=== PATIENT | female | born 2000 | race Caucasian/White ===

== ENCOUNTER 2022-03-04 11:37 | Emergency (ER) | payer OTHER ==
[~2022-03-04] VITALS: Ht 167 cm; Wt 67.0 kg
--- NOTE | 2022-03-04 12:19 | ED Abdominal Pain ---
General Chief Complaint: Abdominal/GI Problems Stated Complaint: DEHYRADTION,CRAMPING Source of Information: Patient Exam Limitations: No Limitations History of Present Illness Date Seen by Provider: March 04, 2022 Time Seen by Provider: 12:10 Initial Comments Patient is a 21-year-old female who presents to the emergency room with about 36 hours of nausea, vomiting and diarrhea. Patient states her symptoms started last Wednesday evening. Both she and her boyfriend ate similar foods she had daughter and he had a different drink. She states she woke up early the following morning with several bouts of diarrhea that she believes were nonblack nonbloody. That quickly transitioned into nausea and vomiting. She states she tried to eat a little rice today and that was able to stay down although she still little bit nauseous. She complains of subjective fever. No URI symptoms. No burning with urination. No vomiting of blood. She has had no prior abdominal surgeries. She is taken nothing for her nausea and vomiting. The diarrhea has stopped. Patient complains of diffuse muscle cramping and feeling lightheaded/dizzy when she stands up. Last menstrual cycle was in the last week. She is currently on control pills. All other review of systems reviewed and negative except as stated. Timing/Duration: 2-3 Days Severity/Quality: Moderate, Cramping Location: Generalized Abdomen Radiation: No Radiation Activities at Onset: None Associated Symptoms: Nausea/Vomiting Allergies and Home Medications Allergies Coded Allergies: amoxicillin (Verified Allergy, Unknown, 03/04/22) azithromycin (Verified Allergy, Unknown, 03/04/22) clavulanic acid (Verified Allergy, Unknown, 03/04/22) Patient Home Medication List Home Medication List Reviewed: Yes Review of Systems Review of Systems Constitutional: see HPI EENTM: No Symptoms Reported Respiratory: No Symptoms Reported Cardiovascular: No Symptoms Reported Gastrointestinal: Abdominal Pain, Diarrhea, Nausea, Vomiting Genitourinary: No Symptoms Reported Musculoskeletal: muscle pain (muscle cramps) Skin: no symptoms reported Psychiatric/Neurological: Headache (mild) All Other Systems Reviewed Negative Unless Noted: Yes Physical Exam Vital Signs Vital Signs - First Documented 03/04/22 12:03 Temp 36.3 Pulse 80 Resp 18 B/P (MAP) 133/100 (111) Pulse Ox 96 O2 Delivery Room Air Capillary Refill : Height/Weight/BMI Height: '" Weight: lbs. oz. kg; BMI Method: General Appearance: WD/WN, no apparent distress HEENT: PERRL/EOMI Neck: full range of motion Respiratory: lungs clear, normal breath sounds, no respiratory distress, no accessory muscle use Cardiovascular: regular rate, rhythm Gastrointestinal: normal bowel sounds, soft, tenderness (diffuse mild tenderness; no rebound or involuntary guarding; neg Mcburney's point) Extremities: normal range of motion, non-tender, normal inspection, no pedal edema, normal capillary refill Neurologic/Psychiatric: no motor/sensory deficits, alert, normal mood/affect, oriented x 3 Skin: normal color, warm/dry Progress/Results/Core Measures Results/Orders Lab Results Laboratory Tests Test 03/04/22 12:15 Range/Units White Blood Count 4.7 4.3-11.0 10^3/uL Red Blood Count 5.05 3.80-5.11 10^6/uL Hemoglobin 14.6 11.5-16.0 g/dL Hematocrit 42 35-52 % Mean Corpuscular Volume 84 80-99 fL Mean Corpuscular Hemoglobin 29 25-34 pg Mean Corpuscular Hemoglobin Concent 35 32-36 g/dL Red Cell Distribution Width 12.6 10.0-14.5 % Platelet Count 170 130-400 10^3/uL Mean Platelet Volume 11.1 9.0-12.2 fL Immature Granulocyte % (Auto) 1 % Neutrophils (%) (Auto) 70 42-75 % Lymphocytes (%) (Auto) 21 12-44 % Monocytes (%) (Auto) 8 0-12 % Eosinophils (%) (Auto) 0 0-10 % Basophils (%) (Auto) 0 0-10 % Neutrophils # (Auto) 3.3 1.8-7.8 10^3/uL Lymphocytes # (Auto) 1.0 1.0-4.0 10^3/uL Monocytes # (Auto) 0.4 0.0-1.0 10^3/uL Eosinophils # (Auto) 0.0 0.0-0.3 10^3/uL Basophils # (Auto) 0.0 0.0-0.1 10^3/uL Immature Granulocyte # (Auto) 0.0 0.0-0.1 10^3/uL Sodium Level 140 135-145 MMOL/L Potassium Level 3.5 L 3.6-5.0 MMOL/L Chloride Level 106 98-107 MMOL/L Carbon Dioxide Level 22 21-32 MMOL/L Anion Gap 12 5-14 MMOL/L Blood Urea Nitrogen 10 7-18 MG/DL Creatinine 0.76 0.60-1.30 MG/DL Estimat Glomerular Filtration Rate 114 BUN/Creatinine Ratio 13 Glucose Level 109 H 70-105 MG/DL Calcium Level 9.1 8.5-10.1 MG/DL Corrected Calcium 8.9 8.5-10.1 MG/DL Total Bilirubin 2.7 H 0.1-1.0 MG/DL Aspartate Amino Transf (AST/SGOT) 17 5-34 U/L Alanine Aminotransferase (ALT/SGPT) 12 0-55 U/L Alkaline Phosphatase 48 40-136 U/L Total Protein 7.1 6.4-8.2 GM/DL Albumin 4.2 3.2-4.5 GM/DL Serum Test, Qualitative NEGATIVE NEGATIVE My Orders Orders - PALMER MENDOZA MD Ns Iv 1000 Ml (Sodium Chloride 0.9%) (03/04/22 12:30) Ondansetron Injection (Zofran Injectio (03/04/22 12:30) Ed Iv/Invasive Line Start (03/04/22 12:29) Cbc With Automated Diff (03/04/22 12:29) Comprehensive Metabolic Panel (03/04/22 12:29) Hcg,Qualitative Serum (03/04/22 12:29) Medications Given in ED Current Medications Medications Dose Ordered Sig/Shaun Route Start Time Stop Time Status Last Admin Dose Admin Ondansetron HCl 4 mg ONCE ONCE IVP 03/04/22 12:30 03/04/22 12:31 DC 03/04/22 12:23 4 MG Vital Signs/I&O 03/04/22 12:03 Temp 36.3 Pulse 80 Resp 18 B/P (MAP) 133/100 (111) Pulse Ox 96 O2 Delivery Room Air Progress Progress Note : Time: 13:29 Progress Note Patient is currently getting her second liter of IV fluids. She states she still having some muscle cramping. Her headache is improved after the first liter. We will add some Toradol. I talked to her about her total bilirubin being a little bit elevated. She states she had lab work a few months ago that was totally normal when she had mono. Suspect may be the elevated total bili is secondary to her mild to moderate dehydration. I did recommend that she find a primary care physician for a recheck of this when she is well. I will send her home with a prescription for some Zofran. Return precautions discussed. She verbalized understanding. All questions were sought and answered. Departure Impression Primary Impression: Gastroenteritis Additional Impression: Moderate dehydration Disposition: HOME, SELF-CARE Condition: Improved Departure-Patient Inst. Decision time for Depature: 13:30 Referrals: NO,LOCAL PHYSICIAN (PCP/Family) Primary Care Physician Patient Instructions: LOCAL PHYSICIAN LIST, Viral Gastroenteritis, Adult (DC) Add. Discharge Instructions: Drink plenty of fluids to stay well-hydrated. Use the Zofran every 8 hours as needed for nausea. Return to the emergency department if you have any worsening abdominal pain especially with fever over 101, passing blood in your stool, blood in your vomit or any other emergent concerning symptoms. You should establish a primary care physician. I have attached the local physician provider list. Scripts Ondansetron (Ondansetron Odt) 4 Mg Tab.rapdis 4 MG PO Q8H PRN for nausea, #20 TAB Prov: PALMER MENDOZA MD 03/04/22 PALMER MENDOZA MD March 04, 2022 12:19
[2022-03-04] MEDS: NS IV 1000 ML 1,000 ML IV SCH ×2 (12:23→13:24)
[2022-03-04] MEDS ORDERED: ONDANSETRON 4 MG/2 ML (SDV) Z0FRAN IVP ONE (12:30)
[2022-03-04 12:41] LABS: BASOPHILS % (AUTO) 0 % (0-10); EOSINOPHILS % (AUTO) 0 % (0-10); HEMATOCRIT 42 % (35-52); HEMOGLOBIN 14.6 g/dL (11.5-16.0); LYMPHOCYTES % (AUTO) 21 % (12-44); MEAN CORPUSCULAR HEMOGLOBIN 29 pg (25-34); MEAN CORPUSCULAR HGB CONC 35 g/dL (32-36); MEAN CORPUSCULAR VOLUME 84 fL (80-99); MEAN PLATELET VOLUME 11.1 fL (9.0-12.2); MONOCYTES # (AUTO) 0.4 10^3/uL (0.0-1.0); MONOCYTES % (AUTO) 8 % (0-12); NEUTROPHILS # (AUTO) 3.3 10^3/uL (1.8-7.8); NEUTROPHILS % (AUTO) 70 % (42-75); PLATELET COUNT 170 10^3/uL (130-400); WHITE BLOOD COUNT 4.7 10^3/uL (4.3-11.0)
[2022-03-04 12:45] LABS: ALBUMIN 4.2 GM/DL (3.2-4.5)
[2022-03-04 12:46] LABS: POTASSIUM 3.5 MMOL/L (3.6-5.0)
[2022-03-04 12:47] LABS: CALCIUM 9.1 MG/DL (8.5-10.1)
[2022-03-04 12:48] LABS: TOTAL PROTEIN 7.1 GM/DL (6.4-8.2)
[2022-03-04 12:50] LABS: BILIRUBIN,TOTAL 2.7 MG/DL (0.1-1.0)
[2022-03-04 12:52] LABS: CREATININE SERUM 0.76 MG/DL (0.60-1.30)
[2022-03-04] MEDS ORDERED: KETOROLAC 30 MG/ML VIAL IVP ONE (13:30)
[2022-03-04] MEDS ORDERED: ONDA4TAB11 PO (13:31)
[2022-03-04 14:45] VITALS: BP 112/76
== END 2022-03-04 14:45 | disposition home or self-care (01) ==
LOC: ER 11:40
DX: K52.9 Noninfective gastroenteritis and colitis, unspecified (principal); Z79.3 Long term (current) use of hormonal contraceptives; Z32.02 Encounter for pregnancy test, result negative
CPT/HCPCS: 36415; 80053; 84703; 85025